=== PATIENT | female | born 1995 | race Two or more races ===

== ENCOUNTER 2023-03-20 15:44 | Emergency (ER) | payer OTHER ==
[~2023-03-20] VITALS: Ht 167.6 cm; Wt 54.4 kg
== END 2023-03-20 20:17 | disposition home or self-care (01) ==
LOC: ER 15:44
DX: J10.1 Influenza due to other identified influenza virus with other respiratory manifestations (principal); Z20.822 Contact with and (suspected) exposure to COVID-19